=== PATIENT | female | born 1955 | race Hispanic/Latino ===

== ENCOUNTER 2018-03-28 20:40 | Emergency (ER) | payer OTHER ==
[~2018-03-28 20:40] MED LIST: CETI10TA57 PO; LORA10TA7 PO; RANI300T4 PO
[2018-03-28] MEDS ORDERED: ACETAMINOPHEN-CODEINE ELIXIR 5 ML UDCUP ONE (21:27)
[2018-03-28 21:39] LABS: EOSINOPHILS % (AUTO) 0.5 % (0.0-8.0); HEMATOCRIT 34.9 % (36-48); MEAN CORPUSCULAR HEMOGLOBIN 30.1 pg (27.0-33.0); MEAN CORPUSCULAR HGB CONC 34.9 g/dL (32.0-36.0); MEAN CORPUSCULAR VOLUME 86.3 fL (79-99); MONOCYTES % (AUTO) 6.8 % (3.0-13.0); NEUTROPHILS % (AUTO) 72.7 % (40.0-77.0); PLATELET COUNT (AUTO) 244 K/uL (130-400); RED BLOOD CELL COUNT(AUTO) 4.05 MIL/uL (4.00-5.50); RED CELL DISTRIBUTION WIDTH 13.5 % (11.0-15.5); WHITE BLOOD COUNT (AUTO) 11.8 K/uL (4.8-10.8)
[2018-03-28 21:54] LABS: CREATININE 0.7 mg/dL (0.5-1.5); POTASSIUM 3.6 mmol/L (3.5-5.1)
[2018-03-28 21:59] LABS: ALBUMIN 3.5 g/dL (3.5-5.0); BILIRUBIN,TOTAL 0.7 mg/dL (0.2-1.0); TOTAL PROTEIN, SERUM 7.3 g/dL (6.0-8.3)
== END 2018-03-28 22:24 | disposition home or self-care (01) ==
LOC: EDH 20:40
DX: S46.211A Strain of muscle, fascia and tendon of other parts of biceps, right arm, initial encounter (principal); M65.821 Other synovitis and tenosynovitis, right upper arm; H57.8 Other specified disorders of eye and adnexa; R07.89 Other chest pain; K21.9 Gastro-esophageal reflux disease without esophagitis; E11.9 Type 2 diabetes mellitus without complications; Z79.4 Long term (current) use of insulin; Z88.6 Allergy status to analgesic agent; X50.9XXA Other and unspecified overexertion or strenuous movements or postures, initial encounter; Y93.89 Activity, other specified; Y92.89 Other specified places as the place of occurrence of the external cause; Y99.8 Other external cause status
CPT/HCPCS: 36415; 71045; 73030; 80053; 85025

== ENCOUNTER 2018-04-29 19:52 | Inpatient (IN) | payer OTHER ==
[~2018-04-29] VITALS: Ht 154.9 cm; Wt 75.3 kg
[2018-04-29] MEDS ORDERED: SODIUM CHLORIDE 0.9% 1000ML 1,000 ML IV ONE (20:24)
[2018-04-29 20:25] LABS: BASOPHILS % (AUTO) 0.7 % (0.0-5.0); HEMATOCRIT 34.8 % (36-48); LYMPHOCYTES % (AUTO) 19.6 % (21.0-51.0); MEAN CORPUSCULAR HEMOGLOBIN 30.1 pg (27.0-33.0); MEAN CORPUSCULAR HGB CONC 34.8 g/dL (32.0-36.0); MEAN CORPUSCULAR VOLUME 86.6 fL (79-99); MONOCYTES % (AUTO) 8.5 % (3.0-13.0); NEUTROPHILS % (AUTO) 71.2 % (40.0-77.0); PLATELET COUNT (AUTO) 227 K/uL (130-400); RED BLOOD CELL COUNT(AUTO) 4.02 MIL/uL (4.00-5.50); RED CELL DISTRIBUTION WIDTH 13.2 % (11.0-15.5)
[2018-04-29] MEDS ORDERED: ACETAMINOPHEN 325 MG TAB ONE (20:25)
[2018-04-29 20:35] LABS: CARBON DIOXIDE 25 mmol/L (21-32); CHLORIDE 98 mmol/L (101-111); CREATININE 0.7 mg/dL (0.5-1.5); GLOMERULAR FILTR. RATE CALC 89 mL/min (>60); GLUCOSE,RANDOM 237 mg/dL (70-105); POTASSIUM 3.4 mmol/L (3.5-5.1); SODIUM SERUM 133 mmol/L (136-145); UREA NITROGEN, BLOOD 9 mg/dL (7-18)
[2018-04-29 20:37] LABS: INR 0.99 (0.85-1.15); PARTIAL THROMBOPLASTIN TIME 30.6 SEC (26.3-35.5); PROTHROMBIN TIME 10.4 SEC (9.6-11.6)
[2018-04-29 20:46] LABS: APPEARANCE,URINE Cloudy (CLEAR); BILIRUBIN,URINE Negative (NEGATIVE); COLOR,URINE Dark Yellow (YELLOW); GLUCOSE, URINE (UA) >=1000 mg/dL (NEGATIVE); KETONES,URINE 40 mg/dL (NEGATIVE); LEUKOCYTE ESTERASE ,URINE Small (NEGATIVE); NITRATE,URINE Positive (NEGATIVE); OCCULT BLOOD,URINE Trace (NEGATIVE); PH,URINE 5.5 (5.0-8.0); PROTEIN,URINE POS 2+ (NEGATIVE)
[2018-04-29 20:49] LABS: ALANINE AMINOTRANSFERASE 15 U/L (12-78); ALBUMIN 3.3 g/dL (3.5-5.0); ASPARTATE AMINOTRANSFERASE 16 U/L (10-37); BILIRUBIN,TOTAL 0.9 mg/dL (0.2-1.0); CREATINE KINASE MB < 0.5 ng/mL (0.5-3.6); CREATINE KINASE, TOTAL 79 U/L (21-232); MYOGLOBIN 56 ng/mL (10-92); TOTAL PROTEIN, SERUM 7.4 g/dL (6.0-8.3); TROPONIN I < 0.04 ng/mL (0.00-0.06)
[2018-04-29 20:55] LABS: BACTERIA,URINE Many /HPF (None Seen); WBC,URINE 26-50 /HPF (0-1)
[2018-04-29] MEDS ORDERED: SODIUM CHLORIDE 0.9% 50 ML IV ONE (21:02)
[2018-04-29] MEDS ORDERED: CEFTRIAXONE SODIUM 1 GM ONE (21:02)
[2018-04-29 23:19] VITALS: BP 114/61
[2018-04-30] MEDS ORDERED: DEXTROSE 50%-WATER 50 ML DISP.SYRIN IV PRN (00:45)
[2018-04-30] MEDS ORDERED: LIDOCAINE HCL-MPF 1% 2ML VIAL IVP PRN (00:45)
[2018-04-30] MEDS ORDERED: POTASSIUM CHLORIDE 10% ELIXIR 20 MEQ/15 ML UDCUP PO PRN (00:45)
[2018-04-30] MEDS ORDERED: GLUCAGON 1MG KIT 1 MG ML IM PRN (00:45)
[2018-04-30] MEDS ORDERED: POTASSIUM CHLORIDE 20MEQ/100ML 100 ML IV PRN (00:45)
[2018-04-30] MEDS: SODIUM CHLORIDE 0.9% 1000ML 1,000 ML IV SCH ×3 (02:22→23:56)
[2018-04-30 04:05] VITALS: BP 119/68
[2018-04-30 04:20] LABS: HEMATOCRIT 35.2 % (36-48); MEAN CORPUSCULAR HEMOGLOBIN 29.8 pg (27.0-33.0); MEAN CORPUSCULAR HGB CONC 34.3 g/dL (32.0-36.0); MEAN CORPUSCULAR VOLUME 86.7 fL (79-99); PLATELET COUNT (AUTO) 239 K/uL (130-400); RED BLOOD CELL COUNT(AUTO) 4.06 MIL/uL (4.00-5.50); RED CELL DISTRIBUTION WIDTH 13.6 % (11.0-15.5); WHITE BLOOD COUNT (AUTO) 14.8 K/uL (4.8-10.8)
[2018-04-30 04:39] LABS: ALBUMIN 2.8 g/dL (3.5-5.0); BILIRUBIN,TOTAL 0.7 mg/dL (0.2-1.0); CREATININE 0.6 mg/dL (0.5-1.5); POTASSIUM 3.2 mmol/L (3.5-5.1); TOTAL PROTEIN, SERUM 6.6 g/dL (6.0-8.3)
[2018-04-30] MEDS: INSULIN HUMULIN R 100 UNIT/ML 3ML SQ SCH ×4 (06:58→21:30)
[2018-04-30 07:53] VITALS: BP 116/55
[2018-04-30] MEDS: FAMOTIDINE 20MG TAB 20 MG TAB PO SCH ×2 (08:48→21:25)
[2018-04-30] MEDS: ACETAMINOPHEN 325 MG TAB PO PRN ×2 (08:49→17:39)
[2018-04-30] MEDS: ENOXAPARIN SODIUM 40 MG/0.4 ML SYRINGE SQ SCH (08:50)
[2018-04-30 12:45] VITALS: BP 117/66
[2018-04-30] MEDS: POTASSIUM CHLORIDE 20 MEQ ERTAB PO PRN ×2 (12:55→17:31)
[2018-04-30 15:55] VITALS: BP 121/66
[2018-04-30 19:23] VITALS: BP 124/65
[2018-04-30 23:05] VITALS: BP 128/70
[2018-04-30] MEDS: CEFTRIAXONE SODIUM 1 GM IVP SCH ×2 (23:55)
[2018-05-01 03:41] VITALS: BP 121/64
[2018-05-01 05:09] LABS: BASOPHILS % (AUTO) 1.9 % (0.0-5.0); HEMATOCRIT 32.7 % (36-48); LYMPHOCYTES % (AUTO) 14.4 % (21.0-51.0); MEAN CORPUSCULAR HEMOGLOBIN 29.7 pg (27.0-33.0); MEAN CORPUSCULAR HGB CONC 34.3 g/dL (32.0-36.0); MEAN CORPUSCULAR VOLUME 86.7 fL (79-99); MONOCYTES % (AUTO) 8.5 % (3.0-13.0); NEUTROPHILS % (AUTO) 73.2 % (40.0-77.0); PLATELET COUNT (AUTO) 223 K/uL (130-400); RED BLOOD CELL COUNT(AUTO) 3.77 MIL/uL (4.00-5.50); RED CELL DISTRIBUTION WIDTH 13.4 % (11.0-15.5); WHITE BLOOD COUNT (AUTO) 12.3 K/uL (4.8-10.8)
[2018-05-01 05:31] LABS: ALBUMIN 2.4 g/dL (3.5-5.0); BILIRUBIN,TOTAL 0.3 mg/dL (0.2-1.0); CREATININE 0.6 mg/dL (0.5-1.5); POTASSIUM 3.6 mmol/L (3.5-5.1); TOTAL PROTEIN, SERUM 6.2 g/dL (6.0-8.3)
[2018-05-01] MEDS: INSULIN HUMULIN R 100 UNIT/ML 3ML SQ SCH ×4 (06:53→22:18)
[2018-05-01] MEDS: METFORMIN HCL 500 MG TAB.SR.24H PO SCH (08:00)
[2018-05-01] MEDS: ENOXAPARIN SODIUM 40 MG/0.4 ML SYRINGE SQ SCH (08:01)
[2018-05-01] MEDS: FAMOTIDINE 20MG TAB 20 MG TAB PO SCH (08:02)
[2018-05-01 08:09] VITALS: BP 115/66
[2018-05-01 11:23] VITALS: BP 110/61
[2018-05-01 15:43] VITALS: BP 122/54
[2018-05-01] MEDS: SODIUM CHLORIDE 0.9% 1000ML 1,000 ML IV SCH (16:53)
[2018-05-01] MEDS: TRAMADOL HCL 50 MG TABLET PO PRN (17:13)
[2018-05-01 19:42] VITALS: BP_SYST 129; BP_SYST 153; BP_DIAS 74; BP_DIAS 78
[2018-05-01] MEDS ORDERED: MAGNESIUM 2GM PREMIX 50ML 50 ML IV PRN (20:30)
[2018-05-01] MEDS: POTASSIUM CHLORIDE 20 MEQ ERTAB PO PRN (22:11)
[2018-05-01 23:39] VITALS: BP 124/61
[2018-05-02] MEDS: CEFTRIAXONE SODIUM 1 GM IVP SCH (00:49)
[2018-05-02] MEDS: POTASSIUM CHLORIDE 20 MEQ ERTAB PO PRN (00:50)
[2018-05-02] MEDS: TRAMADOL HCL 50 MG TABLET PO PRN ×2 (00:50→08:27)
[2018-05-02] MEDS: SODIUM CHLORIDE 0.9% 1000ML 1,000 ML IV SCH (03:26)
[2018-05-02 03:28] VITALS: BP 116/61
[2018-05-02 04:26] LABS: HEMATOCRIT 31.2 % (36-48); MEAN CORPUSCULAR HEMOGLOBIN 30.1 pg (27.0-33.0); MEAN CORPUSCULAR HGB CONC 34.5 g/dL (32.0-36.0); MEAN CORPUSCULAR VOLUME 87.3 fL (79-99); PLATELET COUNT (AUTO) 269 K/uL (130-400); RED BLOOD CELL COUNT(AUTO) 3.58 MIL/uL (4.00-5.50); RED CELL DISTRIBUTION WIDTH 13.3 % (11.0-15.5); WHITE BLOOD COUNT (AUTO) 10.1 K/uL (4.8-10.8)
[2018-05-02 04:49] LABS: CREATININE 0.6 mg/dL (0.5-1.5); MAGNESIUM 1.6 mg/dL (1.80-2.40); POTASSIUM 3.8 mmol/L (3.5-5.1)
[2018-05-02] MEDS: INSULIN HUMULIN R 100 UNIT/ML 3ML SQ SCH ×2 (06:26→13:01)
[2018-05-02 07:58] VITALS: BP 110/59
[2018-05-02] MEDS: METFORMIN HCL 500 MG TAB.SR.24H PO SCH (08:23)
[2018-05-02] MEDS: ENOXAPARIN SODIUM 40 MG/0.4 ML SYRINGE SQ SCH (08:24)
[2018-05-02] MEDS ORDERED: PANTOPRAZOLE SODIUM 40 MG TABLET.DR PO SCH (09:00)
[2018-05-02 11:00] VITALS: BP 123/71
[2018-05-02] MEDS ORDERED: CEPH-578 PO (14:17)
[2018-05-02] MEDS ORDERED: METF500T6 PO (14:17)
[2018-05-02] MEDS ORDERED: MAGNESIUM OXIDE 400 MG TABLET PO ONE (15:15)
== END 2018-05-02 16:00 | disposition home or self-care (01) | DRG 872 ==
LOC: EDH 19:52 → EDHIP 19:53 → 3CH 22:39
PROVIDERS: ADMIT Family Medicine; ATTEND Family Medicine
DX: A41.9 Sepsis, unspecified organism (principal); N39.0 Urinary tract infection, site not specified; E44.0 Moderate protein-calorie malnutrition; E11.65 Type 2 diabetes mellitus with hyperglycemia; R53.1 Weakness; E87.6 Hypokalemia; Z68.31 Body mass index [BMI] 31.0-31.9, adult; E66.9 Obesity, unspecified; E83.42 Hypomagnesemia; K21.9 Gastro-esophageal reflux disease without esophagitis; Z16.23 Resistance to quinolones and fluoroquinolones; Z83.3 Family history of diabetes mellitus; F32.9 Major depressive disorder, single episode, unspecified; Z90.49 Acquired absence of other specified parts of digestive tract; Z88.5 Allergy status to narcotic agent; Z88.8 Allergy status to other drugs, medicaments and biological substances
CPT/HCPCS: 36415; 71045; 80048; 80053; 81001; 82375; 82550; 82553; 82948; 83605; 83735; 83874; 84484; 85025; 85027; 85610; 85730; 86757; 87040; 87088; 87186; 87880; 93005; A4218; J0696; J1650; J1815; J3480; J3490; J7030

== ENCOUNTER → 2020-07-18 | Outpatient (CLI) | payer OTHER ==
[~2020-07-18] MED LIST changes: +CEPH-578 PO; -CETI10TA57 PO; -LORA10TA7 PO; +METF-444 PO; -RANI300T4 PO
== END | disposition home or self-care (01) ==
LOC: OIH 13:08
PROVIDERS: ATTEND Internal Medicine
DX: S93.402A Sprain of unspecified ligament of left ankle, initial encounter (principal); M77.32 Calcaneal spur, left foot; M79.89 Other specified soft tissue disorders; X58.XXXD Exposure to other specified factors, subsequent encounter; Y93.89 Activity, other specified; Y92.89 Other specified places as the place of occurrence of the external cause; Y99.8 Other external cause status
CPT/HCPCS: 73620

== ENCOUNTER → 2020-08-12 | Outpatient (CLI) | payer OTHER | END | disposition home or self-care (01) | LOC: OIH 12:43 | PROVIDERS: ATTEND Internal Medicine | DX: S93.402A Sprain of unspecified ligament of left ankle, initial encounter (principal); M19.072 Primary osteoarthritis, left ankle and foot; M79.89 Other specified soft tissue disorders; X58.XXXA Exposure to other specified factors, initial encounter; Y93.89 Activity, other specified; Y92.89 Other specified places as the place of occurrence of the external cause; Y99.8 Other external cause status | CPT/HCPCS: 73600 ==

== ENCOUNTER → 2020-08-28 | Outpatient (CLI) | payer OTHER | END | disposition home or self-care (01) | LOC: OIH 10:29 | PROVIDERS: ATTEND Internal Medicine | DX: S82.53XA Displaced fracture of medial malleolus of unspecified tibia, initial encounter for closed fracture (principal); M77.32 Calcaneal spur, left foot; R26.81 Unsteadiness on feet; M25.572 Pain in left ankle and joints of left foot; X58.XXXA Exposure to other specified factors, initial encounter; Y92.89 Other specified places as the place of occurrence of the external cause; Y93.89 Activity, other specified; Y99.8 Other external cause status | CPT/HCPCS: 73600 ==

== ENCOUNTER 2021-09-20 13:25 | Emergency (ER) | payer OTHER ==
[~2021-09-20] VITALS: Ht 154.9 cm; Wt 74.4 kg
[2021-09-20 13:59] VITALS: BP 133/66
== END 2021-09-20 14:04 | disposition home or self-care (01) ==
LOC: EDH 13:25
DX: Z77.098 Contact with and (suspected) exposure to other hazardous, chiefly nonmedicinal, chemicals (principal); E78.00 Pure hypercholesterolemia, unspecified; I10 Essential (primary) hypertension; Z79.84 Long term (current) use of oral hypoglycemic drugs; Z88.5 Allergy status to narcotic agent; Z88.6 Allergy status to analgesic agent; Z88.8 Allergy status to other drugs, medicaments and biological substances; Z90.49 Acquired absence of other specified parts of digestive tract

== ENCOUNTER 2023-02-09 14:26 | Emergency (ER) | payer MEDICARE, OTHER ==
[~2023-02-09] VITALS: Ht 154.9 cm; Wt 68.9 kg
[2023-02-09] MEDS ORDERED: IBUPROFEN 600 MG TABLET PO ONE (15:00)
[2023-02-09 15:46] VITALS: BP 141/77
[2023-02-09] MEDS ORDERED: IBUP-2070 PO (16:15)
== END 2023-02-09 16:24 | disposition home or self-care (01) ==
LOC: EDH 14:26
DX: M54.2 Cervicalgia (principal); R07.89 Other chest pain; K08.109 Complete loss of teeth, unspecified cause, unspecified class; F41.9 Anxiety disorder, unspecified; F32.A Depression, unspecified; E78.00 Pure hypercholesterolemia, unspecified; I10 Essential (primary) hypertension; E10.9 Type 1 diabetes mellitus without complications; Z90.710 Acquired absence of both cervix and uterus; Z90.49 Acquired absence of other specified parts of digestive tract; Z79.1 Long term (current) use of non-steroidal anti-inflammatories (NSAID); Z79.84 Long term (current) use of oral hypoglycemic drugs; Z82.49 Family history of ischemic heart disease and other diseases of the circulatory system; Z88.5 Allergy status to narcotic agent; Z88.6 Allergy status to analgesic agent; Z88.8 Allergy status to other drugs, medicaments and biological substances; Y04.2XXA Assault by strike against or bumped into by another person, initial encounter; Y93.89 Activity, other specified; Y92.89 Other specified places as the place of occurrence of the external cause; Y99.8 Other external cause status
CPT/HCPCS: 70450; 71250; 72125

== ENCOUNTER → 2023-09-21 | Outpatient (CLI) | payer OTHER ==
[~2023-09-21] MED LIST changes: +IBUP-2070 PO
== END | disposition home or self-care (01) ==
LOC: RAH 09:51
PROVIDERS: ATTEND Internal Medicine
DX: S46.002A Unspecified injury of muscle(s) and tendon(s) of the rotator cuff of left shoulder, initial encounter (principal); M19.012 Primary osteoarthritis, left shoulder; M47.22 Other spondylosis with radiculopathy, cervical region; X58.XXXA Exposure to other specified factors, initial encounter; Y93.89 Activity, other specified; Y92.89 Other specified places as the place of occurrence of the external cause; Y99.8 Other external cause status
CPT/HCPCS: 72040; 73030

== ENCOUNTER 2023-12-06 16:25 | Emergency (ER) | payer OTHER, MEDICARE ==
[~2023-12-06] VITALS: Ht 154.9 cm; Wt 75.7 kg
[2023-12-06 16:27] VITALS: BP 175/87; PULSE 87; RESP 16
[2023-12-06 16:53] LABS: EOSINOPHILS # (AUTO) 0.17 K/uL (0.00-0.70); EOSINOPHILS % (AUTO) 1.7 % (0.0-8.0); HEMATOCRIT 36.7 % (36-48); IMMATURE GRANULOCYTE ABSOLUTE 0.03 K/uL (0-1); LYMPHOCYTES # (AUTO) 2.6 K/uL (1.0-4.8); LYMPHOCYTES % (AUTO) 26.9 % (21.0-51.0); MEAN CORPUSCULAR HEMOGLOBIN 30.2 pg (27.0-33.0); MEAN CORPUSCULAR HGB CONC 34.1 g/dL (32.0-36.0); MEAN CORPUSCULAR VOLUME 88.6 fL (79-99); MONOCYTES # (AUTO) 0.6 K/uL (0.1-1.0); NEUTROPHILS # (AUTO) 6.2 K/uL (1.8-7.7); NEUTROPHILS % (AUTO) 64.1 % (40.0-77.0); PLATELET COUNT (AUTO) 310 K/uL (130-400); RED BLOOD CELL COUNT(AUTO) 4.14 MIL/uL (4.00-5.50); RED CELL DISTRIBUTION WIDTH 13.3 % (11.0-15.5); WHITE BLOOD COUNT (AUTO) 9.7 K/uL (4.8-10.8)
[2023-12-06 17:06] LABS: CREATININE 0.7 mg/dL (0.5-1.5); POTASSIUM 3.7 mmol/L (3.5-5.1)
[2023-12-06 17:11] LABS: BILIRUBIN,TOTAL 0.3 mg/dL (0.2-1.0); TOTAL PROTEIN, SERUM 7.1 g/dL (6.0-8.3)
[2023-12-06] MEDS: CLINDAMYCIN 150 MG CAP PO ONE (18:30)
== END 2023-12-06 20:43 | disposition home or self-care (01) ==
LOC: EDH 16:25
DX: R51.9 Headache, unspecified (principal)
CPT/HCPCS: 36415; 80053; 85025

== ENCOUNTER → 2024-02-28 | Outpatient (CLI) | payer OTHER, MEDICARE | END | disposition home or self-care (01) | LOC: OIH 16:22 | PROVIDERS: ATTEND Internal Medicine | DX: M47.22 Other spondylosis with radiculopathy, cervical region (principal); M75.42 Impingement syndrome of left shoulder | CPT/HCPCS: 72040; 73030 ==

== ENCOUNTER 2024-08-28 20:29 | Emergency (ER) | payer OTHER, MEDICARE ==
[~2024-08-28] VITALS: Ht 154.9 cm; Wt 73.0 kg
[2024-08-28] MEDS: mecliZINE HCL 25 MG TABLET PO ONE (21:17)
[2024-08-28 21:18] LABS: BASOPHILS # (AUTO) 0.07 K/uL (0.00-0.20); BASOPHILS % (AUTO) 0.9 % (0.0-5.0); EOSINOPHILS # (AUTO) 0.16 K/uL (0.00-0.70); IMMATURE GRANULOCYTE ABSOLUTE 0.03 K/uL (0-1); LYMPHOCYTES # (AUTO) 3.2 K/uL (1.0-4.8); LYMPHOCYTES % (AUTO) 39.5 % (21.0-51.0); MEAN CORPUSCULAR HEMOGLOBIN 30.6 pg (27.0-33.0); MEAN CORPUSCULAR HGB CONC 34.8 g/dL (32.0-36.0); MEAN CORPUSCULAR VOLUME 87.9 fL (79-99); MONOCYTES # (AUTO) 0.5 K/uL (0.1-1.0); MONOCYTES % (AUTO) 6.2 % (3.0-13.0); NEUTROPHILS # (AUTO) 4.2 K/uL (1.8-7.7); PLATELET COUNT (AUTO) 222 K/uL (130-400); RED CELL DISTRIBUTION WIDTH 13.9 % (11.0-15.5); WHITE BLOOD COUNT (AUTO) 8.1 K/uL (4.8-10.8)
[2024-08-28] MEDS: 0.9%NACL 1000ML 1,000 ML IV ONE (21:18)
[2024-08-28 21:27] LABS: CREATININE 0.7 mg/dL (0.5-1.0); MAGNESIUM 1.4 mg/dL (1.80-2.40)
[2024-08-28 21:35] LABS: POTASSIUM 2.8 mmol/L (3.5-5.1)
[2024-08-28] MEDS: PoTASSium BIcarbonate/CIT AC 25 MEQ TABLET.EFF PO ONE (21:47)
[2024-08-28] MEDS: MAGNESIUM 2GM PREMIX 50ML 50 ML IV SCH (21:47)
[2024-08-28] MEDS: PoTASSium chloRIDE 10MEQ SR 10 MEQ/TAB TAB.SR.24H PO ONE (23:56)
[2024-08-29 00:03] VITALS: BP 149/80; PULSE 78; RESP 17; TEMP 98.3; O2SAT 97
== END 2024-08-29 00:08 | disposition home or self-care (01) ==
LOC: EDH 20:29
DX: S50.02XA Contusion of left elbow, initial encounter (principal); R42 Dizziness and giddiness; D64.9 Anemia, unspecified; E87.6 Hypokalemia; E83.42 Hypomagnesemia; E11.65 Type 2 diabetes mellitus with hyperglycemia; Z79.84 Long term (current) use of oral hypoglycemic drugs; Z88.5 Allergy status to narcotic agent; Z88.6 Allergy status to analgesic agent; Z88.8 Allergy status to other drugs, medicaments and biological substances; Z91.010 Allergy to peanuts; Z98.890 Other specified postprocedural states; W01.0XXA Fall on same level from slipping, tripping and stumbling without subsequent striking against object, initial encounter; Y93.89 Activity, other specified; Y92.89 Other specified places as the place of occurrence of the external cause; Y99.8 Other external cause status
CPT/HCPCS: 99285; 96374; 70450; 71045; 83735; 84484; 80048; 85025; 36415; 73080; 93005; 84132; J3475; J7030